=== PATIENT | male | born 1950 | race Caucasian/White ===

== ENCOUNTER 2017-03-16 06:22 | Day surgery (SDC) | payer MEDICARE, BC ==
[2017-03-16] MEDS ORDERED: Lactated Ringers 1,000 ML IV SCH (07:00)
[2017-03-16] MEDS ORDERED: Midazolam 1 MG/ML 2 ML SDV ONE (07:02)
[2017-03-16] MEDS ORDERED: fentaNYL 100 MCG/2 ML SDV ONE (07:02)
[2017-03-16] MEDS ORDERED: Propofol 200 MG/20 ML SDV ONE (07:02)
[2017-03-16 09:10] VITALS: BP 134/84
--- NOTE | 2017-03-16 14:17 | OR ---
DATE OF PROCEDURE: 03/16/2017 PREOPERATIVE DIAGNOSIS: History of adenomatous colon polyps. POSTOPERATIVE DIAGNOSES: Diverticulosis. Three small rectal polyps. PROCEDURE: Colonoscopy to the cecum with biopsy resection of three small rectal polyps sent to the laboratory as one specimen. SURGEON: Sergey Mathew MD ANESTHESIA: IV anesthesia with monitored anesthesia care. INDICATION: This 66-year-old white male is referred for a colonoscopy because of a history of adenomatous colon polyps. His last colonoscopic exam was done in 2012. I counseled him for the procedure including risks and alternatives, and he gave his informed consent to proceed. PROCEDURE IN DETAIL: The patient was placed in the left lateral decubitus position. IV anesthesia was administered by the Anesthesia Service. Time-out was held. A rectal exam was performed, which was unremarkable. The flexible video Olympus colonoscope was introduced through his anus, up his rectum, and out his colon all the way to the cecum. En route, we saw multiple left-sided diverticula. There was no bleeding or inflammation associated with any of them. Once the cecum was reached, the scope was slowly withdrawn examining the mucosa throughout. No additional mucosal abnormalities were noted until we reached the rectum. We retroflexed the scope. We saw 3 small rectal polyps. These were all removed with the biopsy forceps and sent to the laboratory as one specimen. The scope was then removed. He tolerated the procedure well. Sergey Mathew MD /[id number]
== END 2017-03-16 09:21 | disposition home or self-care (01) ==
LOC: JP.SDS 06:22
PROVIDERS: ATTEND Surgery
DX: K62.1 Rectal polyp (principal); K57.30 Diverticulosis of large intestine without perforation or abscess without bleeding; I10 Essential (primary) hypertension; Z86.010 Personal history of colon polyps
CPT/HCPCS: 45380; 88305; J2250; J2704; J3010; J7120

== ENCOUNTER 2022-03-31 18:03 | Emergency (ER) | payer MEDICARE, OTHER ==
[2022-03-31 18:17] VITALS: PULSE 92
[2022-03-31 18:25] VITALS: BP 178/93
[2022-03-31 19:15] LABS: TROPONIN I HIGH SENSITIVITY 9.2 pg/mL (<=60.3)
== END 2022-03-31 19:42 | disposition home or self-care (01) ==
LOC: JP.ED 18:03
DX: K22.4 Dyskinesia of esophagus (principal); E78.00 Pure hypercholesterolemia, unspecified; I10 Essential (primary) hypertension; E66.9 Obesity, unspecified; Z68.35 Body mass index [BMI] 35.0-35.9, adult; Z88.5 Allergy status to narcotic agent; Z79.82 Long term (current) use of aspirin; Z79.899 Other long term (current) drug therapy
CPT/HCPCS: 36415; 80053; 84484; 85025; 86140; 93005; 93010; 99282; 99284-25

== ENCOUNTER 2022-04-07 08:30 | Day surgery (SDC) | payer MEDICARE, OTHER ==
[~2022-04-07 08:30] MED LIST: Propofol 200 MG/20 ML SDV ONE; fentaNYL 100 MCG/2 ML SDV ONE
[2022-04-07] MEDS ORDERED: Dextrose 5%-Lactated Ringers 1,000 ML IV SCH (09:15)
[2022-04-07] MEDS ORDERED: Pantoprazole 40 MG Vial IVPUSH ONE (11:30)
[2022-04-07 11:57] VITALS: BP 101/76; PULSE 84
== END 2022-04-07 12:55 | disposition home or self-care (01) ==
LOC: JP.SDS 08:30
PROVIDERS: ATTEND Surgery
DX: K21.00 Gastro-esophageal reflux disease with esophagitis, without bleeding (principal); K44.9 Diaphragmatic hernia without obstruction or gangrene; K22.4 Dyskinesia of esophagus; I25.10 Atherosclerotic heart disease of native coronary artery without angina pectoris; G47.33 Obstructive sleep apnea (adult) (pediatric); E66.01 Morbid (severe) obesity due to excess calories; Z88.6 Allergy status to analgesic agent; Z68.34 Body mass index [BMI] 34.0-34.9, adult; Z01.812 Encounter for preprocedural laboratory examination; Z20.822 Contact with and (suspected) exposure to COVID-19
CPT/HCPCS: C9113; J2704; J3010; J7121; U0002

== ENCOUNTER 2022-04-13 18:52 | Emergency (ER) | payer MEDICARE, OTHER ==
[2022-04-13] MEDS ORDERED: Sucralfate 1 GM Tab PO ONE (18:56)
[2022-04-13] MEDS ORDERED: Prochlorperazine 10 MG Tab PO ONE (19:09)
[2022-04-13] MEDS ORDERED: Sodium Chloride 0.9% 10 ML Syringe FLUSH PRN (19:18)
[2022-04-13] MEDS ORDERED: Prochlorperazine 10 MG/2 ML SDV IVPUSH ONE (19:18)
[2022-04-13 19:50] LABS: ESTIMATED GFR 59 (>60)
[2022-04-13] MEDS ORDERED: Iopamidol 612 MG/ML 100 ML Bottle IV PRN (20:09)
[2022-04-13] MEDS ORDERED: Sodium Chloride 0.9% 100 ML IV SCH (20:15)
[2022-04-13] MEDS ORDERED: Metoclopramide 10 MG/2 ML SDV IVPUSH ONE (20:58)
[2022-04-13 21:00] VITALS: BP 131/73; PULSE 102
[2022-04-13] MEDS ORDERED: HYDROmorphone 1 MG/ML Syringe IVPUSH ONE (21:01)
[2022-04-13] MEDS ORDERED: Sodium Chloride 0.9% 1,000 ML IV SCH (21:15)
[2022-04-13] MEDS ORDERED: Piperacillin/Tazobactam 3.375 GM in Sodium Chloride 0.9% 50 ML IV SCH (21:45)
== END 2022-04-13 22:31 ==
LOC: JP.ED 18:52
DX: K85.10 Biliary acute pancreatitis without necrosis or infection (principal); K80.43 Calculus of bile duct with acute cholecystitis with obstruction; E78.00 Pure hypercholesterolemia, unspecified; I10 Essential (primary) hypertension; E66.9 Obesity, unspecified; Z68.35 Body mass index [BMI] 35.0-35.9, adult; Z88.6 Allergy status to analgesic agent; Z79.899 Other long term (current) drug therapy; Z79.82 Long term (current) use of aspirin; Z20.822 Contact with and (suspected) exposure to COVID-19
CPT/HCPCS: 36415; 74177; 80053; 83605; 83690; 85025; 96361; 96365; 96375; 99284; 99285-25; J0780; J1170; J2543; J2765; J3490; J7030; Q9967; U0002

== ENCOUNTER 2022-04-23 10:14 | Emergency (ER) | payer MEDICARE, OTHER ==
[2022-04-23 10:35] VITALS: BP 133/72; PULSE 72
== END 2022-04-23 12:31 | disposition home or self-care (01) ==
LOC: JP.ED 10:14
DX: G47.01 Insomnia due to medical condition (principal); I10 Essential (primary) hypertension; E78.00 Pure hypercholesterolemia, unspecified; E66.9 Obesity, unspecified; Z68.34 Body mass index [BMI] 34.0-34.9, adult; Z79.899 Other long term (current) drug therapy; Z88.5 Allergy status to narcotic agent
CPT/HCPCS: 99282; 99284

== ENCOUNTER 2023-04-30 07:50 | Day surgery (SDC) | payer MEDICARE, OTHER ==
[2023-04-30 08:23] LABS: HEMATOCRIT 46.9 % (38.4-49.7); HEMOGLOBIN 16.8 g/dL (12.9-16.9); MEAN CORPUSCULAR HEMOGLOBIN 30.2 pg (31.6-35.5); MEAN CORPUSCULAR HGB CONC 35.8 g/dL (31.6-35.5); MEAN CORPUSCULAR VOLUME 84.4 fL (81.4-99.0); RED BLOOD CELL COUNT 5.56 M/uL (4.14-5.76); WHITE BLOOD CELL COUNT,WBC 6.4 K/uL (3.2-11.0)
[2023-04-30] MEDS ORDERED: Lactated Ringers 1,000 ML IV SCH (08:30)
[2023-04-30 08:45] LABS: ALANINE AMINOTRANSFERASE,ALT 50 U/L (12-78); ALBUMIN 3.4 g/dL (3.4-5.0); ALKALINE PHOSPHATASE 106 U/L (46-116); ASPARTATE AMNIOTRANSFERASE,AST 36 U/L (15-37); BILIRUBIN TOTAL 2.4 mg/dL (0.2-1.0); BLOOD UREA NITROGEN,BUN 10 mg/dL (7-18); CALCIUM 8.9 mg/dL (8.5-10.1); CARBON DIOXIDE,CO2 26 mmol/L (21-32); CHLORIDE,CL 93 mmol/L (100-108); CREATININE 0.7 mg/dL (0.8-1.3); EST CRCL DRUG DOSING (CG) 104.63 mL/min; ESTIMATED GFR 97 mL/min (>60); GLUCOSE RANDOM 103 mg/dL (74-106); POTASSIUM,K 3.8 mmol/L (3.6-5.2); PROTEIN TOTAL,TP 6.9 g/dL (6.4-8.2); SODIUM,NA 128 mmol/L (140-148)
[2023-04-30 08:57] LABS: ANION GAP 12.8 mmol/L (5.0-14.0)
[2023-04-30 11:01] VITALS: BP 138/69; PULSE 59
== END 2023-04-30 11:30 | disposition home or self-care (01) ==
LOC: JP.SDS 07:50
PROVIDERS: ATTEND Student in an Organized Health Care Education/Training Program
DX: Z12.11 Encounter for screening for malignant neoplasm of colon (principal); K63.5 Polyp of colon; K57.30 Diverticulosis of large intestine without perforation or abscess without bleeding; G47.33 Obstructive sleep apnea (adult) (pediatric); I25.10 Atherosclerotic heart disease of native coronary artery without angina pectoris; I10 Essential (primary) hypertension; E66.9 Obesity, unspecified; Z68.37 Body mass index [BMI] 37.0-37.9, adult
CPT/HCPCS: 36415; 45380; 80053; 85027; 88305; 93005; J2704; J3010; J7120

== ENCOUNTER 2023-05-02 12:44 | Emergency (ER) | payer MEDICARE, OTHER ==
[2023-05-02] MEDS ORDERED: Ondansetron 4 MG Tab.DIS PO ONE (15:03)
[2023-05-02] MEDS ORDERED: Ketorolac 30 MG/ML SDV IM ONE (15:03)
[2023-05-02 15:11] LABS: APPEARANCE,URINE CLEAR (CLEAR); BILIRUBIN,URINE NEGATIVE (NEGATIVE); COLOR,URINE YELLOW (YELLOW); GLUCOSE,URINE NEGATIVE (NEGATIVE); KETONES,URINE NEGATIVE (NEGATIVE); LEUKOCYTE ESTERASE,URINE NEGATIVE (NEGATIVE); NITRITE,URINE NEGATIVE (NEGATIVE); OCCULT BLOOD,URINE MODERATE (NEGATIVE); PROTEIN,URINE NEGATIVE (NEGATIVE); UROBILINOGEN,URINE 0.2 EU/dL (0.2-1.0)
[2023-05-02 15:12] LABS: AMORPHOUS SEDIMENT,URINE NOT SEEN; BACTERIA,URINE RARE; EPITHELIAL CELLS,URINE NOT SEEN; MUCUS,URINE NOT SEEN; WBC,URINE 0-5 (0-5)
[2023-05-02 15:17] LABS: BASOPHILS ABSOLUTE AUTO 0.02 K/uL (0.00-0.10); BASOPHILS PERCENT AUTO 0.3 % (0.1-1.3); EOSINOPHILS ABSOLUTE AUTO 0.01 K/uL (0.00-0.40); EOSINOPHILS PERCENT AUTO 0.2 % (0.0-5.4); HEMATOCRIT 48.2 % (38.4-49.7); HEMOGLOBIN 17.1 g/dL (12.9-16.9); IMMATURE GRAN ABSOLUTE AUTO 0.04 K/uL (0.00-0.23); IMMATURE GRAN PERCENT AUTO 0.6 % (0.0-0.7); LYMPHOCYTES ABSOLUTE AUTO 0.39 K/uL (0.8-3.3); MEAN CORPUSCULAR HEMOGLOBIN 30.5 pg (31.6-35.5); MEAN CORPUSCULAR HGB CONC 35.5 g/dL (31.6-35.5); MEAN CORPUSCULAR VOLUME 85.9 fL (81.4-99.0); MONOCYTES ABSOLUTE AUTO 0.53 K/uL (0.20-0.90); MONOCYTES PERCENT AUTO 8.2 % (3.3-12.6); NEUTROPHILS ABSOLUTE AUTO 5.46 K/uL (1.0-7.6); NEUTROPHILS PERCENT AUTO 84.7 % (40.0-78.1); PLATELET COUNT,PLT 158 K/uL (130-375); RED BLOOD CELL COUNT 5.61 M/uL (4.14-5.76); WHITE BLOOD CELL COUNT,WBC 6.5 K/uL (3.2-11.0)
[2023-05-02 15:36] LABS: A/G RATIO 0.9 (1.2-2.2); ALANINE AMINOTRANSFERASE,ALT 41 U/L (12-78); ALBUMIN 3.6 g/dL (3.4-5.0); ALKALINE PHOSPHATASE 111 U/L (46-116); ANION GAP 10.1 mmol/L (5.0-14.0); ASPARTATE AMNIOTRANSFERASE,AST 27 U/L (15-37); BILIRUBIN TOTAL 1.5 mg/dL (0.2-1.0); BLOOD UREA NITROGEN,BUN 8 mg/dL (7-18); CALCIUM 9.1 mg/dL (8.5-10.1); CARBON DIOXIDE,CO2 29 mmol/L (21-32); CHLORIDE,CL 93 mmol/L (100-108); CREATININE 0.9 mg/dL (0.8-1.3); EST CRCL DRUG DOSING (CG) 81.38 mL/min; ESTIMATED GFR 90 mL/min (>60); GLUCOSE RANDOM 128 mg/dL (74-106); POTASSIUM,K 4.1 mmol/L (3.6-5.2); PROTEIN TOTAL,TP 7.5 g/dL (6.4-8.2); SODIUM,NA 128 mmol/L (140-148)
[2023-05-02 16:48] VITALS: BP 136/76; PULSE 91
== END 2023-05-02 17:00 | disposition home or self-care (01) ==
LOC: JP.ED 12:44
DX: R53.1 Weakness (principal); I25.10 Atherosclerotic heart disease of native coronary artery without angina pectoris; I10 Essential (primary) hypertension; N40.0 Benign prostatic hyperplasia without lower urinary tract symptoms; E66.9 Obesity, unspecified; Z68.44 Body mass index [BMI] 60.0-69.9, adult; Z88.5 Allergy status to narcotic agent; Z79.82 Long term (current) use of aspirin; Z79.899 Other long term (current) drug therapy; Z87.891 Personal history of nicotine dependence; Z20.822 Contact with and (suspected) exposure to COVID-19
CPT/HCPCS: 36415; 80053; 81001; 83605; 84484; 85025; 86140; 96372; 99284; J1885; Q0162; U0002

== ENCOUNTER 2023-05-02 22:24 | Emergency (ER) | payer MEDICARE, OTHER ==
[2023-05-02] MEDS ORDERED: Sodium Chloride 0.9% 10 ML Syringe FLUSH PRN (22:53)
[2023-05-02] MEDS ORDERED: Sodium Chloride 0.9% 500 ML IV ONE (22:57)
[2023-05-02 23:17] LABS: LACTIC ACID 1.5 mmol/L (0.7-2.1)
[2023-05-02 23:19] LABS: BASOPHILS PERCENT AUTO 0.2 % (0.1-1.3); HEMATOCRIT 47.9 % (38.4-49.7); HEMOGLOBIN 17.1 g/dL (12.9-16.9); IMMATURE GRAN ABSOLUTE AUTO 0.04 K/uL (0.00-0.23); IMMATURE GRAN PERCENT AUTO 0.7 % (0.0-0.7); LYMPHOCYTES ABSOLUTE AUTO 0.24 K/uL (0.8-3.3); LYMPHOCYTES PERCENT AUTO 3.9 % (11.4-47.7); MEAN CORPUSCULAR HEMOGLOBIN 30.4 pg (31.6-35.5); MEAN CORPUSCULAR HGB CONC 35.7 g/dL (31.6-35.5); MEAN CORPUSCULAR VOLUME 85.2 fL (81.4-99.0); MONOCYTES ABSOLUTE AUTO 0.38 K/uL (0.20-0.90); MONOCYTES PERCENT AUTO 6.2 % (3.3-12.6); NEUTROPHILS ABSOLUTE AUTO 5.42 K/uL (1.0-7.6); PLATELET COUNT,PLT 125 K/uL (130-375); RED BLOOD CELL COUNT 5.62 M/uL (4.14-5.76); WHITE BLOOD CELL COUNT,WBC 6.1 K/uL (3.2-11.0)
[2023-05-02 23:30] LABS: BASOPHILS ABSOLUTE AUTO 0.01 K/uL (0.00-0.10)
[2023-05-02] MEDS ORDERED: Acetaminophen 500 MG Tab PO ONE (23:52)
[2023-05-03] MEDS ORDERED: Prochlorperazine 10 MG/2 ML SDV IVPUSH ONE (00:32)
[2023-05-03] MEDS ORDERED: Sodium Chloride 0.9% 500 ML IV ONE (01:14)
[2023-05-03 01:49] VITALS: BP 123/60; PULSE 88
== END 2023-05-03 02:09 | disposition home or self-care (01) ==
LOC: JP.ED 22:24
DX: M79.10 Myalgia, unspecified site (principal); R50.9 Fever, unspecified; R51.9 Headache, unspecified; R53.83 Other fatigue; I10 Essential (primary) hypertension; I25.10 Atherosclerotic heart disease of native coronary artery without angina pectoris; M19.90 Unspecified osteoarthritis, unspecified site; Z88.5 Allergy status to narcotic agent; Z79.82 Long term (current) use of aspirin; Z79.899 Other long term (current) drug therapy; Z95.5 Presence of coronary angioplasty implant and graft; Z86.16 Personal history of COVID-19; Z87.19 Personal history of other diseases of the digestive system
CPT/HCPCS: 36415; 71045; 83605; 83690; 84145; 85025; 87040; 96361; 96374; 99284; A9270; J0780; J3490; J7040

== ENCOUNTER 2023-05-12 10:10 | Inpatient (IN) | payer MEDICARE, OTHER ==
[2023-05-12 11:12] LABS: BASOPHILS ABSOLUTE AUTO 0.04 K/uL (0.00-0.10); BASOPHILS PERCENT AUTO 0.5 % (0.1-1.3); EOSINOPHILS ABSOLUTE AUTO 0.23 K/uL (0.00-0.40); HEMATOCRIT 44.9 % (38.4-49.7); HEMOGLOBIN 16.5 g/dL (12.9-16.9); IMMATURE GRAN ABSOLUTE AUTO 0.21 K/uL (0.00-0.23); IMMATURE GRAN PERCENT AUTO 2.7 % (0.0-0.7); LYMPHOCYTES ABSOLUTE AUTO 0.94 K/uL (0.8-3.3); LYMPHOCYTES PERCENT AUTO 12.3 % (11.4-47.7); MEAN CORPUSCULAR HGB CONC 36.7 g/dL (31.6-35.5); MEAN CORPUSCULAR VOLUME 81.6 fL (81.4-99.0); MONOCYTES ABSOLUTE AUTO 0.65 K/uL (0.20-0.90); MONOCYTES PERCENT AUTO 8.5 % (3.3-12.6); NEUTROPHILS ABSOLUTE AUTO 5.58 K/uL (1.0-7.6); PLATELET COUNT,PLT 290 K/uL (130-375); WHITE BLOOD CELL COUNT,WBC 7.7 K/uL (3.2-11.0)
[2023-05-12 11:32] LABS: A/G RATIO 0.9 (1.2-2.2); ALANINE AMINOTRANSFERASE,ALT 68 U/L (12-78); ALBUMIN 3.3 g/dL (3.4-5.0); ALKALINE PHOSPHATASE 109 U/L (46-116); ASPARTATE AMNIOTRANSFERASE,AST 42 U/L (15-37); BILIRUBIN TOTAL 1.4 mg/dL (0.2-1.0); BLOOD UREA NITROGEN,BUN 7 mg/dL (7-18); C-REACTIVE PROTEIN 0.07 mg/dL (0.0-0.3); CALCIUM 8.9 mg/dL (8.5-10.1); CARBON DIOXIDE,CO2 27 mmol/L (21-32); CHLORIDE,CL 85 mmol/L (100-108); CREATININE 0.7 mg/dL (0.8-1.3); ESTIMATED GFR 97 mL/min (>60); GLUCOSE RANDOM 112 mg/dL (74-106); POTASSIUM,K 4.5 mmol/L (3.6-5.2); PROTEIN TOTAL,TP 6.9 g/dL (6.4-8.2)
[2023-05-12 11:35] LABS: ANION GAP 9.5 mmol/L (5.0-14.0); SODIUM,NA 117 mmol/L (140-148)
[2023-05-12 11:56] LABS: APPEARANCE,URINE SLIGHTLY CLOUDY (CLEAR); BILIRUBIN,URINE NEGATIVE (NEGATIVE); COLOR,URINE YELLOW (YELLOW); EPITHELIAL CELLS,URINE NOT SEEN; GLUCOSE,URINE NEGATIVE (NEGATIVE); KETONES,URINE NEGATIVE (NEGATIVE); LEUKOCYTE ESTERASE,URINE NEGATIVE (NEGATIVE); NITRITE,URINE NEGATIVE (NEGATIVE); OCCULT BLOOD,URINE TRACE-LYSED (NEGATIVE); PH,URINE 7.5 (5.0-8.0); PROTEIN,URINE NEGATIVE (NEGATIVE); RBC,URINE 0-5 (0-5); UROBILINOGEN,URINE 0.2 EU/dL (0.2-1.0); WBC,URINE NOT SEEN (0-5)
[2023-05-12 11:57] LABS: AMORPHOUS SEDIMENT,URINE RARE; BACTERIA,URINE NOT SEEN; MUCUS,URINE NOT SEEN
[2023-05-12] MEDS ORDERED: fentaNYL 50 MCG/ML SDV IVPUSH ONE ×2 (12:29→13:57)
[2023-05-12] MEDS ORDERED: Sodium Chloride 0.9% 1,000 ML IV SCH ×2 (12:30→14:41)
[2023-05-12] MEDS ORDERED: Sodium Chloride 0.9% 50 ML IV SCH (12:45)
[2023-05-12] MEDS ORDERED: Iopamidol 612 MG/ML 100 ML Bottle IV SCH (12:45)
[2023-05-12] MEDS ORDERED: Ondansetron 4 MG/2 ML SDV IVPUSH ONE (13:09)
[2023-05-12 14:31] LABS: CALCIUM 8.5 mg/dL (8.5-10.1); CREATININE 0.7 mg/dL (0.8-1.3); EST CRCL DRUG DOSING (CG) 104.63 mL/min; POTASSIUM,K 4.3 mmol/L (3.6-5.2)
[2023-05-12 14:37] LABS: ANION GAP 11.3 mmol/L (5.0-14.0)
[2023-05-12] MEDS ORDERED: Sodium Chloride 0.9% 10 ML Syringe FLUSH PRN (14:41)
[2023-05-12] MEDS ORDERED: Sennosides/Docusate Sodium 50-8.6 MG Tab PO PRN (14:41)
[2023-05-12] MEDS ORDERED: Naloxone 0.4 MG/ML SDV IVPUSH PRN (14:41)
[2023-05-12] MEDS ORDERED: Ondansetron 4 MG/2 ML SDV IV PRN (14:41)
[2023-05-12] MEDS ORDERED: HYDROmorphone 0.5 MG/0.5 ML Syringe IVPUSH PRN (14:41)
[2023-05-12] MEDS: LORazepam 2 MG/ML SDV IVPUSH PRN ×2 (15:07→19:34)
[2023-05-12] MEDS: Acetaminophen 325 MG Tab PO PRN (15:08)
[2023-05-12] MEDS: Enoxaparin 40 MG/0.4 ML Syringe SUBCUT SCH (15:11)
[2023-05-12] MEDS: Ketorolac 30 MG/ML SDV IVPUSH PRN (20:04)
[2023-05-13] MEDS: Sodium Chloride 0.9% 1,000 ML IV SCH ×3 (02:30→17:48)
[2023-05-13] MEDS: Ketorolac 30 MG/ML SDV IVPUSH PRN ×2 (02:34→08:26)
[2023-05-13 05:09] LABS: CALCIUM 8.2 mg/dL (8.5-10.1); CREATININE 0.8 mg/dL (0.8-1.3); EST CRCL DRUG DOSING (CG) 91.55 mL/min; POTASSIUM,K 4.1 mmol/L (3.6-5.2)
[2023-05-13 05:13] LABS: ANION GAP 10.1 mmol/L (5.0-14.0)
[2023-05-13] MEDS: Atenolol 25 MG Tab PO SCH (08:29)
[2023-05-13] MEDS: Aspirin 81 MG Tab.Chew PO SCH (08:29)
[2023-05-13] MEDS: atorvaSTATin 20 MG Tab PO SCH (08:30)
[2023-05-13] MEDS: Enoxaparin 40 MG/0.4 ML Syringe SUBCUT SCH (08:34)
[2023-05-13] MEDS: Acetaminophen 325 MG Tab PO PRN (11:11)
[2023-05-14] MEDS: Sodium Chloride 0.9% 1,000 ML IV SCH (03:35)
[2023-05-14 05:19] LABS: CALCIUM 7.9 mg/dL (8.5-10.1); CREATININE 0.7 mg/dL (0.8-1.3); EST CRCL DRUG DOSING (CG) 66.71 mL/min; POTASSIUM,K 4.3 mmol/L (3.6-5.2)
[2023-05-14 05:24] LABS: ANION GAP 9.3 mmol/L (5.0-14.0)
[2023-05-14 07:50] VITALS: BP 160/78; PULSE 65
[2023-05-14] MEDS: atorvaSTATin 20 MG Tab PO SCH (08:07)
[2023-05-14] MEDS: Aspirin 81 MG Tab.Chew PO SCH (08:07)
[2023-05-14] MEDS: Enoxaparin 40 MG/0.4 ML Syringe SUBCUT SCH (08:07)
[2023-05-14] MEDS: Atenolol 25 MG Tab PO SCH (10:12)
== END 2023-05-14 11:10 | disposition home or self-care (01) | DRG 641 ==
LOC: JP.ED 10:10 → JP.ICU 12:55
PROVIDERS: ADMIT Hospitalist; ATTEND Internal Medicine
DX: E87.1 Hypo-osmolality and hyponatremia (principal); I10 Essential (primary) hypertension; I25.10 Atherosclerotic heart disease of native coronary artery without angina pectoris; M19.90 Unspecified osteoarthritis, unspecified site; K57.30 Diverticulosis of large intestine without perforation or abscess without bleeding; K83.8 Other specified diseases of biliary tract; E86.0 Dehydration; E78.00 Pure hypercholesterolemia, unspecified; Z20.822 Contact with and (suspected) exposure to COVID-19; E66.9 Obesity, unspecified; T50.2X5A Adverse effect of carbonic-anhydrase inhibitors, benzothiadiazides and other diuretics, initial encounter; Z88.5 Allergy status to narcotic agent; Z86.16 Personal history of COVID-19; Z98.890 Other specified postprocedural states; Z90.49 Acquired absence of other specified parts of digestive tract; Z79.82 Long term (current) use of aspirin; Z79.899 Other long term (current) drug therapy; Z68.32 Body mass index [BMI] 32.0-32.9, adult
CPT/HCPCS: 36415; 74177; 80053; 81001; 85025; 86140; J3010; J3490; J7030; Q9967; 80048; 84295; 96361; 96374; 96375; 96376; 99285-25; A9270-GY; J1650; J1885; J2060; J2405; U0002

== ENCOUNTER 2025-06-18 07:38 | Day surgery (SDC) | payer MEDICARE, OTHER ==
[2025-06-18] MEDS: Sodium Chloride 0.9% 10 ML Syringe FLUSH ONE (08:13)
[2025-06-18 09:10] VITALS: BP 148/78; PULSE 59
== END 2025-06-18 09:14 | disposition home or self-care (01) ==
LOC: JP.SDS 07:38
PROVIDERS: ATTEND Ophthalmology
DX: H25.12 Age-related nuclear cataract, left eye (principal); I10 Essential (primary) hypertension; I48.91 Unspecified atrial fibrillation; E66.9 Obesity, unspecified; Z88.5 Allergy status to narcotic agent
CPT/HCPCS: 66984; V2632; 00142-QZ